=== PATIENT | female | born 2000 | race Asian ===

== ENCOUNTER 2019-09-29 17:02 | Emergency (ER) | payer MEDICAID ==
[~2019-09-29] VITALS: Ht 154.9 cm; Wt 73.3 kg
[2019-09-29 17:18] VITALS: BP 119/85
--- NOTE | 2019-09-29 17:28 | NUR ---
PT PRESENTED TO ED D/T COUGH, SORE THROAT, AND CHILLS SINCE FRIDAY NIGHT. PT DENIES RECENT TRAVELS. PT DENIES BEING AROUND ANYONE + OF COVID VIRUS.
--- NOTE | 2019-09-29 18:34 | NUR ---
PT DISCHARGED HOME IN A STABLE CONDITION. DC INSTRUCTIONS WERE DISCUSSED WITH PT. PT VERBALIZED UNDERSTANDING. PT AMBULATED OUT OF ED WITH A STEADY GAIT.
== END 2019-09-29 18:36 ==
LOC: ED 18:28
DX: B34.9 Viral infection, unspecified (principal); J00 Acute nasopharyngitis [common cold]
CPT/HCPCS: 71045; 87081; 87880; 99284

== ENCOUNTER 2019-10-06 11:26 | Emergency (ER) | payer MEDICAID ==
[~2019-10-06] VITALS: Ht 154.9 cm; Wt 71.6 kg
[2019-10-06 11:30] VITALS: BP 133/92
[2019-10-06] MEDS ORDERED: IBUP-1902 PO (12:00)
--- NOTE | 2019-10-06 12:05 | NUR ---
Patient given discharge instructions and they have confirmed that they understand the instructions. Patient ambulatory with steady gait.
== END 2019-10-06 12:05 | disposition home or self-care (01) ==
LOC: ED 11:54
DX: J00 Acute nasopharyngitis [common cold] (principal); R11.10 Vomiting, unspecified; R05 Cough
CPT/HCPCS: 99283